=== PATIENT | female | born 1955 | race Caucasian/White ===

== ENCOUNTER → 2017-04-12 | Outpatient (CLI) | payer BC | LOC: MC.RAD 06:53 | DX: Z12.31 Encounter for screening mammogram for malignant neoplasm of breast (principal) ==

== ENCOUNTER 2018-04-11 05:57 | Day surgery (SDC) | payer BC ==
[~2018-04-11] VITALS: Ht 160 cm; Wt 72.4 kg
[~2018-04-11 05:57] MED LIST: ASPIRIN 81M81 MG/TA2 PO
[2018-04-11 06:14] VITALS: BP 133/79; PULSE 81; TEMP 98.5
[2018-04-11 07:24] VITALS: BP 116/55; PULSE 78; TEMP 97.7
[2018-04-11 07:39] VITALS: BP 95/54; PULSE 79
[2018-04-11 07:54] VITALS: BP 104/57; PULSE 71
== END 2018-04-11 08:13 | disposition home or self-care (01) ==
LOC: SDCO 05:57
DX: Z12.11 Encounter for screening for malignant neoplasm of colon (principal); Z80.0 Family history of malignant neoplasm of digestive organs; K57.30 Diverticulosis of large intestine without perforation or abscess without bleeding
CPT/HCPCS: J2250; J3010; J7030

== ENCOUNTER → 2018-05-08 | Outpatient (CLI) | payer BC | LOC: MC.RAD 06:46 | DX: Z12.31 Encounter for screening mammogram for malignant neoplasm of breast (principal) ==

== ENCOUNTER → 2019-05-20 | Outpatient (CLI) | payer BC | LOC: MC.RAD 07:18 | DX: Z12.31 Encounter for screening mammogram for malignant neoplasm of breast (principal) ==

== ENCOUNTER → 2020-04-06 | Outpatient (CLI) | payer BC | LOC: MC.RAD 07:19 | DX: Z12.31 Encounter for screening mammogram for malignant neoplasm of breast (principal) ==

== ENCOUNTER → 2020-04-21 | Outpatient (CLI) | payer BC | LOC: COL.VAS | DX: I08.1 Rheumatic disorders of both mitral and tricuspid valves (principal); I44.7 Left bundle-branch block, unspecified; I11.9 Hypertensive heart disease without heart failure ==

== ENCOUNTER → 2021-05-17 | Outpatient (CLI) | payer BC | LOC: MC.RAD 05-16 08:45 | DX: Z12.31 Encounter for screening mammogram for malignant neoplasm of breast (principal); N64.89 Other specified disorders of breast ==

== ENCOUNTER → 2022-05-21 | Outpatient (CLI) | payer BC | LOC: MC.RAD 06:52 | DX: Z12.31 Encounter for screening mammogram for malignant neoplasm of breast (principal) ==

== ENCOUNTER → 2024-06-02 | Outpatient (CLI) | payer BC | LOC: MC.RAD 09:23 | DX: Z12.31 Encounter for screening mammogram for malignant neoplasm of breast (principal) ==